=== PATIENT | male | born 1995 | race Two or more races ===

== ENCOUNTER 2020-11-19 23:43 | Emergency (ER) | payer MEDICAID, OTHER ==
[~2020-11-19] VITALS: Ht 170.2 cm; Wt 74.8 kg
[2020-11-20 01:55] VITALS: BP 143/87
== END 2020-11-20 03:40 | disposition home or self-care (01) ==
LOC: ER 23:43
DX: S13.4XXA Sprain of ligaments of cervical spine, initial encounter (principal); S00.31XA Abrasion of nose, initial encounter; S09.8XXA Other specified injuries of head, initial encounter; R51.9 Headache, unspecified; M54.2 Cervicalgia; V49.49XA Driver injured in collision with other motor vehicles in traffic accident, initial encounter; Y93.89 Activity, other specified; Y92.488 Other paved roadways as the place of occurrence of the external cause; Y99.8 Other external cause status
CPT/HCPCS: 70450; 72040